=== PATIENT | female | born 1985 | race African-American/Black ===

== ENCOUNTER 2017-01-12 13:50 | Inpatient (IN) ==
[2017-01-12 16:38] LABS: MANUAL DIFF NEEDED? NO
[2017-01-12 16:50] LABS: BASO% 0.1 % (0.0-0.8); EOS% 1.8 % (0.0-10.0); HEMATOCRIT 38.2 % (37.0-47.0); HEMOGLOBIN 12.9 g/dL (12.0-16.0); IMM GRAN# 0.01 X1000 (0.0-0.04); IMM GRAN% 0.1 % (0.0-0.5); LYMPH# 3.31 X1000 (1.2-3.4); LYMPH% 29.6 % (20.5-51.1); MCH 28.9 PG (27-31); MCHC 33.8 g/dL (33-37); MCV 85.7 FL (81-99); MONO# 1.05 X1000 (0.11-0.59); MONO% 9.4 % (1.7-9.3); MPV 12.3 FL (7.4-10.4); PLT 140 X1000 (130-400); RBC 4.46 XMIL (4.2-5.4)
[2017-01-12 17:03] LABS: AGAP 11; ALBUMIN 4.2 g/dL (3.5-5.0); ALKALINE PHOSPHATASE 69 U/L (32-104); BUN 8 mg/dL (8-22); CALCIUM 9.2 mg/dL (8.8-10.2); CHLORIDE 99 mmol/L (98-107); COSMO 264; GOT 12 U/L (10-30); GPT 10 U/L (10-36); POTASSIUM 3.9 mmol/L (3.5-5.1); SODIUM 133 mmol/L (136-145); TCO2 23 mmol/L (25-35); TOTAL PROTEIN 8.4 g/dL (6.3-8.3)
[2017-01-12] MEDS ORDERED: NORCO-5 PO ONE (17:10)
[2017-01-12] MEDS ORDERED: NS 1,000 ML IV ONE (18:03)
[2017-01-12] MEDS ORDERED: NORCO-7.5 PO ONE (18:09)
--- NOTE | 2017-01-12 18:11 | PROVIDER DOCUMENTATION ---
This chart was entered by Gia Alegria Scribe, acting as scribe for Huy Steiner MD. HPI-Rash/Wound/ReCheck - General Chief Complaint: Abdominal Pain Stated Complaint: RETURN/RECHECK Time Seen by Provider: 01/12/17 15:57 Source: patient Allergies/Adverse Reactions: Allergies Allergy/AdvReac Type Severity Reaction Status Date / Time No Known Allergies Allergy Verified 01/11/17 08:48 Home Medications: Home Medication List Medication Instructions Recorded Confirmed Last Taken Type Doxycycline Hyclate 100 mg PO BID #20 capsule 01/11/17 01/12/17 Unknown Rx Hydrocodone/APAP 7.5 mg/325 mg 1 each PO Q8H PRN PRN #10 tablet 01/11/17 Unknown Rx [[place]-7.5] Mupirocin Ointment [Bactroban 1 applicatn TOP TID #1 tube 01/11/17 01/12/17 Unknown Rx Ointment] Sulfamethoxazole/Trimethoprim 1 each PO BID #20 tablet 01/11/17 01/12/17 Unknown Rx [Bactrim Ds Tablet] - History of Present Illness-Dermatology Nature of Presenting Problem: Pt is 31 y/o F presents to the ED with redness to suprapubic region of abdomen. Pt states was seen in ED yesterday for same symptoms. Pt states was given antibiotics and pain meds. Pt states redness area opened this morning with drainage. Pt states F and chills. Location: reports: other (suprapubic area) Quality: reports: burning, painful Severity: reports: moderate Onset/Duration: reports: 1 week ago Timing: reports: still present, getting worse Context/Associated Symptoms: reports: fever, rash (redness to suprapubic area), other (chills) Identifiable cause?: No Exposure: reports: unknown cause Locality of Occurance: Home Similar Symptoms Previously?: Yes Recently seen or treated by another doctor?: Yes Review of Systems - Adult - REVIEW OF SYSTEMS - ADULT Constitutional: reports: chills, fever Eyes: reports: no symptoms reported Ears, Nose, Mouth & Throat: reports: no symptoms reported Cardiovascular: reports: no symptoms reported Respiratory: reports: no symptoms reported Gastrointestinal: reports: no symptoms reported Genitourinary: reports: no symptoms reported Musculoskeletal: reports: no symptoms reported Integumentary: reports: rash (redness to suprapubic area). denies: hives, itching Neurological: reports: no symptoms reported Psychiatric: reports: no symptoms reported Endocrine: reports: no symptoms reported Hematologic/Lymphatic: reports: no symptoms reported Allergic/Immunologic: reports: no symptoms reported All Other Systems: Reviewed and Negative Past History - Adult - PAST MEDICAL HISTORY-ADULT Review of Records: reports: Nursing Assessment Review, Medications Reviewed, Social history reviewed & non-contributory. Major Childhood Illnesses: reports: denies history Cardiovascular: reports: denies history Respiratory: reports: asthma, bronchitis Gastrointestinal: reports: denies history Obstetrical/Gynecological: reports: denies history Genitourinary: reports: denies history Musculoskeletal: reports: denies history Neurological: reports: denies history Endocrine/Immune: reports: denies history Other Conditions: reports: denies history - PRIOR SURGERIES/PROCEDURES Surgical/Procedure History: reports: - IMMUNIZATION STATUS Childhood Immunizations: See Nurse Assessment Flu Vaccine: See Nurse Assessment - FAMILY HISTORY Family History: reviewed, not pertinent - SOCIAL HISTORY Smoking: denies Substance Use: alcohol Alcohol Use Frequency: occasionally Number of drinks per typical drinking period:: 2 drinks Living Situation: family Physical Exam-General - PHYSICAL EXAM-ADULT Initial Vital Signs Reviewed: Yes - CONSTITUTIONAL General Appearance: appears well, alert, mild distress - EYES Eyes: PERRL/EOMI, pink conjunctivae - HEAD, EARS, NOSE, MOUTH & THROAT HENMT: normocephalic/atraumatic, moist mucous membranes, normal ENT inspection - NECK Neck: supple, normal inspection - RESPIRATORY Respiratory: chest non-tender, lungs clear, normal breath sounds - CARDIOVASCULAR Cardiovascular: normal peripheral pulses, regular rate, rhythm, no edema, no gallop, no JVD, no murmur - GASTROINTESTINAL (ABDOMEN) Abdominal Exam: normal bowel sounds, soft, tenderness (suprapubic), other ( redness to suprapubic) - LYMPHATIC Lymphatic: no adenopathy - MUSCULOSKELETAL Back Exam: normal inspection, no CVA tenderness, no vertebral tenderness Extremity: normal range of motion, non-tender, normal gait, normal inspection, no pedal edema, no calf tenderness, normal capillary refill - SKIN Integumentary: normal color, normal turgor, warm/dry, erythema (suprapubic), swelling (suprapubic), tenderness (suprapubic), warm (suprapubic) - NEUROLOGIC Neurologic: grossly normal - PSYCHIATRIC Psych/Mental Status: normal mood/affect, oriented x 3 Progress - PLAN OF CARE/RESULTS Progress/Plan/Lab Results: Vital Signs - 8 hr 01/12/17 13:55 Temperature 97.8 F Pulse Rate 90 Respiratory Rate 18 Blood Pressure 126/68 O2 Sat by Pulse Oximetry 100 Laboratory Results - last 24 hr 01/12/17 01/12/17 01/12/17 16:35 16:35 16:35 WBC 11.17 H RBC 4.46 Hgb 12.9 Hct 38.2 MCV 85.7 MCH 28.9 MCHC 33.8 RDW Std Deviation 12.4 Plt Count 140 MPV 12.3 H Immature Gran % (Auto) 0.1 Neut % (Auto) 59.0 Lymph % (Auto) 29.6 [place] % (Auto) 9.4 H Eos % (Auto) 1.8 Baso % (Auto) 0.1 Immature Gran # (Auto) 0.01 Neut # (Auto) 6.59 H Lymph # (Auto) 3.31 [place] # (Auto) 1.05 H Eos # (Auto) 0.20 Baso # (Auto) 0.01 Sodium 133 L Potassium 3.9 Chloride 99 Carbon Dioxide 23 L Anion Gap 11 BUN 8 Creatinine 1.0 H Estimated GFR/1.73 m2 > 60 BUN/Creatinine Ratio 8 Glucose 89 Calculated Osmolality 264 Calcium 9.2 Total Bilirubin 0.30 AST 12 ALT 10 Alkaline Phosphatase 69 Total Protein 8.4 H Albumin 4.2 Globulin 4.0 Albumin/Globulin Ratio 1.0 Plasma Lactate 0.8 Orders Category Date Time Status Admit - [facility] Routine AdmDCTranf 01/12/17 18:03 Ordered Activity - Up Ad Ghazal ORDERED Care 01/12/17 18:03 Active Call Admitting on Arrival AT ADMISSION Care 01/12/17 18:04 Active Vital Signs Order Q 4-HR ASSESS Care 01/12/17 18:03 Active Heart Healthy Diet Diet 01/12/17 18:05 Active CBC WITH DIFF [HEME] Stat Lab 01/12/17 16:35 Completed COMPREHENSIVE METABOLIC PANEL [CHEM] Stat Lab 01/12/17 16:35 Completed LACTATE, PLASMA [CHEM] Stat Lab 01/12/17 16:35 Completed 0.9% Sodium Chloride Inj [Ns] 1,000 ml Med 01/12/17 18:03 Active IV 150 mls/hr Daptomycin (For Outpatient Use [Cubicin (For Outpatient Med 01/12/17 18:15 Ordered Use)] 500 mg 0.9% Sodium Chloride Inj [Ns] 100 ml IV Q24H Hydrocodone/APAP 5 mg/325 mg [[place]-5] Med 01/12/17 17:10 Discontinued 1 each PO NOW ONE Hydrocodone/APAP 7.5 mg/325 mg [[place]-7.5] Med 01/12/17 18:09 Once 1 each PO NOW ONE Result Diagrams: 01/12/17 16:35 01/12/17 16:35 - CONSULTS/PCP/HOSPITALIST Notification #1 *Consult/PCP/Hospitalist*: Dr. Breen Time Discussed: 17:59 Reason/Comments: Dr. Breen consulted with Dr. Breen about admit of Pt Consult Disposition: Admit Departure - Departure Time of Disposition Decision: 18:10 DIAGNOSIS: Cellulitis of abdominal wall Disposition: ADMITTED INPATIENT 09 Certified Medical Emergency: Emergent Condition: Stable Referrals and Follow-Ups: None,PCP [Primary Care Provider] - - Critical Care Note This patient required my direct & personal management of CC.: No This chart was documented by the indicated scribe, (Gia Alegria Scribe) and accurately reflects the services I performed and decisions made by me, Huy Steiner MD, as attested by the provider's signature.
[2017-01-12] MEDS ORDERED: NS IV SCH (19:00)
[2017-01-12] MEDS ORDERED: CUBICIN IV SCH (19:00)
[2017-01-12] MEDS ORDERED: TYLENOL PO PRN (19:42)
[2017-01-12] MEDS ORDERED: ZOFRAN IV PRN (19:42)
[2017-01-12] MEDS ORDERED: NORCO-7.5 PO PRN (19:42)
[2017-01-12] MEDS: NS 1,000 ML IV SCH (19:50)
[2017-01-12] MEDS: ROCEPHIN 1 GM/NS 1 GM/50 ML IVPB IV SCH (20:25)
[2017-01-12] MEDS: BACTROBAN OINTMENT TOP SCH (20:26)
[2017-01-13] MEDS ORDERED: CUBICIN (FOR INPATIENT USE) 500 MG in NS 100 ML IV SCH (06:02)
[2017-01-13 06:36] LABS: HEMATOCRIT 33.5 % (37.0-47.0); HEMOGLOBIN 11.2 g/dL (12.0-16.0); MCH 28.8 PG (27-31); MCHC 33.4 g/dL (33-37); MCV 86.1 FL (81-99); MPV 12.6 FL (7.4-10.4); RBC 3.89 XMIL (4.2-5.4)
[2017-01-13 06:57] LABS: AGAP 11; ALBUMIN 3.4 g/dL (3.5-5.0); ALKALINE PHOSPHATASE 59 U/L (32-104); BUN 9 mg/dL (8-22); CALCIUM 8.7 mg/dL (8.8-10.2); CHLORIDE 103 mmol/L (98-107); COSMO 271; GOT 10 U/L (10-30); GPT 8 U/L (10-36); POTASSIUM 3.9 mmol/L (3.5-5.1); SODIUM 136 mmol/L (136-145); TCO2 22 mmol/L (25-35); TOTAL BILIRUBIN < 0.15 mg/dL (0.20-1.00); TOTAL PROTEIN 7.1 g/dL (6.3-8.3)
[2017-01-13] MEDS: NS 1,000 ML IV SCH ×2 (07:30→21:18)
[2017-01-13] MEDS: BACTROBAN OINTMENT TOP SCH ×3 (09:25→17:26)
--- NOTE | 2017-01-13 11:46 | PROGRESS NOTE ---
DATE: 01/13/2017 SUBJECTIVE: The patient notes she is feeling a little bit better, still having pain, although pain medications help. Denies any fevers, chills. Denies any cough, congestion. OBJECTIVE: Temperature 98 degrees, pulse 80, respiratory rate 16, blood pressure 109/71, saturation 100% on room air.General: Patient is awake, alert, oriented. She is currently in no respiratory distress. She is pleasant to talk with. Speech is regular. Memory intact. Neck: Supple. Cardiovascular: Regular rate. Chest: Relatively clear. Abdomen: Soft. Extremities: Moves all extremities. Neurologic: No focal neurological changes. Skin: Warm and dry. She is noted to have an erythematous rash on the pannus on her bilateral lower right and left quadrants. No current ulcerative lesions, no pus, and no drainage. LABORATORIES: WBC 7, hemoglobin and hematocrit 11 and 33. Sodium 136. ASSESSMENT: 1. Hyponatremia, resolved. 2. Leukocytosis, resolved. 3. Cellulitis, lower abdominal wall. Expect that this is secondary to Methicillin-resistant Staphylococcus aureus, failed outpatient management. PLAN: We will continue patient on IV Rocephin, IV vancomycin, continue Bactroban, pain control. Further orders as needed. Hopefully, home in 1-2 days. cc: Christiano Breen MD
--- NOTE | 2017-01-13 19:14 | HISTORY AND PHYSICAL ---
CHIEF COMPLAINT: Abdominal wound, abdominal pain. HISTORY OF PRESENT ILLNESS: This is a 32-year-old female who presented to the emergency room actually as a recheck from 24 hours prior for low abdomen cellulitis with a draining wound. The patient states this has been present for a week. She stated it started out as a little pimple that she still feels that she scratched it and shortly after the area started becoming tender to touch and started draining. She states she has a history of these in fact she has an area just to her left lateral breast about dime size as well as 1 to her right upper arm that she states had yellow pimples on them, she scratched, they drained and at present they are crusted over. She has been applying Bactroban daily. She 1st presented to the emergency room on January 11. At that time she was given vancomycin IV and then discharged with a prescription for Bactrim DS, Bactroban ointment and doxycycline. She presented to the ER on January 12 stating that she had increased pain, drainage to this area and she developed fever and chills. Therefore she came in to the ER for reevaluation. She was found to have a white blood cell count of 11.17. She was given IV hydration and admitted for further evaluation and treatment. PAST MEDICAL HISTORY: She denies. PAST SURGICAL HISTORY: in 2010. SOCIAL HISTORY: She denies tobacco or illicit drug use. She does occasionally drink alcohol socially. ALLERGIES: No known drug allergies. HOME MEDICATIONS: None prior to ER visit 24 hours ago. REVIEW OF SYSTEMS: A 14 point review of systems is discussed with the patient with pertinent positives stated in HPI. She denied chest pain, palpitations, dizziness, syncope, nausea, vomiting, diarrhea, constipation, black or bloody vomitus, black or bloody stools, hematuria, dysuria, frequency, urgency. PHYSICAL EXAMINATION: GENERAL: This is a 32-year-old female who is sitting in the bed in no distress. VITAL SIGNS: Blood pressure is 126/68 with a heart rate of 90, respirations are 18, temperature is 97.8 degrees oral with room air saturations of 100%. HEENT: Head is normocephalic, atraumatic. Pupils are equal, round, react to light. EOMs are intact. Sclerae are anicteric. Mucous membranes are moist. NECK: Supple. Trachea midline. CARDIOVASCULAR: Regular rate and rhythm S1, S2 appreciated. PULMONARY: Breath sounds are clear with no increased work of breathing noted. GASTROINTESTINAL: Abdomen is soft. It is tender to palpation with an erythematous rash on the her pannus bilateral right and left lower quadrants. It is draining purulent drainage. EXTREMITIES: No clubbing, cyanosis, or edema. Calves are nontender. Pulses are palpable x4. DIAGNOSTICS: WBC is 11.17 with hemoglobin 12.9, hematocrit 38.2 and platelets of 140,000. Sodium is 133, potassium 3.9, BUN 8, creatinine 1 with a glucose of 89. Microbiology. Blood cultures and wound culture are pending. ASSESSMENT AND PLAN: 1. Hyponatremia. Will continue with IV hydration and recheck labs in the morning. 2. Leukocytosis. We will continue with IV coverage of Rocephin. We will add daptomycin as she did have a documented reaction in the emergency room to vancomycin. 3. Cellulitis lower abdominal wall. This is most likely methicillin-resistant Staphylococcus aureus with failed outpatient treatment. Will continue as stated above. Dictated by EDER Chang for Christiano Breen MD cc: EDER Chang MD [facility]
[2017-01-13] MEDS: ROCEPHIN 1 GM/NS 1 GM/50 ML IVPB IV SCH (21:18)
[2017-01-13] MEDS: CUBICIN (FOR INPATIENT USE) 500 MG in NS 100 ML IV SCH (21:18)
[2017-01-14] MEDS: BACTROBAN OINTMENT TOP SCH ×3 (09:36→17:12)
--- NOTE | 2017-01-14 11:56 | PROGRESS NOTE ---
DATE: 01/14/2017 SUBJECTIVE: The patient notes that she may be feeling a little bit better. She has less pain. Pain medications seem to be helping. Denies any swelling or erythema elsewhere. OBJECTIVE: Vital signs: Temperature 98, pulse 86, respiratory 20, BP 121/77, saturation 99% on room air. General: Patient is awake, alert, oriented. She is in no respiratory distress. Pleasant to talk with. Neck: Supple. CV: Regular rate. Chest: Clear. Abdomen: Soft, nondistended. Extremities: Moves all extremities. Skin: On exam appears to have some pus draining from the open wounds on her pannus. She is noted to have less surrounding erythema, less induration. Appears to be less tender. ASSESSMENT: 1. Leukocytosis, improving. 2. Hyponatremia, improved. 3. Cellulitis lower abdominal wall. PLAN: Continue daptomycin. Continue Rocephin. Further orders as needed. Hopefully home in 1-2 days. cc: Christiano Breen MD
[2017-01-14] MEDS: NS 1,000 ML IV SCH ×2 (13:12→20:37)
[2017-01-14] MEDS: CUBICIN (FOR INPATIENT USE) 500 MG in NS 100 ML IV SCH (20:37)
[2017-01-14] MEDS: ROCEPHIN 1 GM/NS 1 GM/50 ML IVPB IV SCH (20:37)
[2017-01-15] MEDS: NS 1,000 ML IV SCH ×3 (00:59→21:47)
[2017-01-15 06:09] LABS: HEMATOCRIT 34.9 % (37.0-47.0); HEMOGLOBIN 11.9 g/dL (12.0-16.0); MCHC 34.1 g/dL (33-37); MCV 84.9 FL (81-99); MPV 11.7 FL (7.4-10.4); RBC 4.11 XMIL (4.2-5.4)
[2017-01-15 06:19] LABS: AGAP 10; ALBUMIN 3.5 g/dL (3.5-5.0); ALKALINE PHOSPHATASE 54 U/L (32-104); BUN 9 mg/dL (8-22); CHLORIDE 103 mmol/L (98-107); COSMO 272; GOT 11 U/L (10-30); GPT 9 U/L (10-36); MAGNESIUM 1.8 mg/dL (1.5-2.7); POTASSIUM 3.9 mmol/L (3.5-5.1); SODIUM 136 mmol/L (136-145); TCO2 23 mmol/L (25-35); TOTAL BILIRUBIN < 0.15 mg/dL (0.20-1.00)
[2017-01-15] MEDS: BACTROBAN OINTMENT TOP SCH ×3 (09:01→17:18)
[2017-01-15] MEDS: CUBICIN (FOR INPATIENT USE) 500 MG in NS 100 ML IV SCH (21:47)
[2017-01-15] MEDS: ROCEPHIN 1 GM/NS 1 GM/50 ML IVPB IV SCH (21:47)
[2017-01-16] MEDS: NS 1,000 ML IV SCH (05:30)
[2017-01-16 07:28] VITALS: BP 125/79
--- NOTE | 2017-01-16 08:31 | PROGRESS NOTE ---
DATE: 01/15/2017 SUBJECTIVE: Patient notes she is feeling a little bit better. She is having much less drainage and pain in her lower right abdominal wall. However, it still hurts to move. Denies any fevers or chills. OBJECTIVE: Vital Signs: Reviewed. She is afebrile. Blood pressure is stable. Heart rate 80. General: Patient is awake, alert. She is in no distress. She appears much less ill than when she was initially admitted. HEENT: Normocephalic. Neck: Supple. CV: Regular rate. Chest: Clear. Abdomen: Soft, no masses. Extremities: Moves all extremities. Neurologic: No changes. Skin: She has much less drainage, much less induration, no erythema to her right lower quadrant abdominal wall. ASSESSMENT: Abdominal wall cellulitis. Continue vancomycin until culture returns. Hopefully, it will return sensitive to an oral antibiotic and she can be discharged home on oral antibiotics. However we will keep in the hospital until culture results. cc: Christiano Breen MD
[2017-01-16] MEDS: BACTROBAN OINTMENT TOP SCH (10:36)
[2017-01-16] MEDS ORDERED: MOTRIN PO PRN (11:15)
--- NOTE | 2017-01-16 19:05 | DISCHARGE SUMMARY ---
ADMISSION DATE: 01/12/2017 DISCHARGE DATE: 01/16/2017 ADMISSION DIAGNOSES: 1. Hyponatremia. 2. Leukocytosis. 3. Cellulitis of lower abdominal wall. DISCHARGE DIAGNOSES: 1. Hyponatremia resolved. 2. Leukocytosis resolved. 3. Abdominal wall cellulitis with Staphylococcus lugdunensis. SUMMARY OF FINDINGS: This is a 32-year-old female who presented to the emergency room with a recheck of low abdomen cellulitis with a draining wound that had been present for the past week. Stated that it started out as just a simple pimple and she scratched it and shortly after the area became tender to touch and started draining. She had been applying Bactroban daily. Her 1st presentation for this in the emergency room was on January 12. At that time. She was given vancomycin IV and then discharged home with a prescription for Bactrim DS, Bactroban ointment and doxycycline. She presented to the ER on January 12 stating that she had increased pain and drainage to this area and developed a fever and chills. She had a white blood cell count on arrival of 11.17. We obtained a wound culture of the wound on her abdomen that grew out Staphylococcus lugdunensis. She has been receiving here in the hospital daptomycin 500 mg IV q.24 and Rocephin 1 gram IV q.24. Per her sensitivity report it is felt that she can safely be discharged home on Bactrim DS. DISCHARGE INSTRUCTIONS: She will have a prescription for Bactrim DS 1 p.o. q.12 hours #20 with no refills. She will have a prescription for ibuprofen 400 mg p.o. q.6 hours p.r.n., #15 with no refills. She will take Tylenol 650 mg p.o. q.6 hours p.r.n. She will continue her Bactroban ointment topically 3 times a day. FOLLOW UP: We gave her the physician referral line for followup and information on the [facility]. She verbalizes understanding about her discharge instructions. Dictated by EDER Romeo for Arsenio Helm MD cc: EDER Romeo MD
[2017-01-16] MEDS ORDERED: SEPTRA DS PO SCH (21:00)
== END 2017-01-16 13:18 | disposition home or self-care (01) ==
LOC: P.ED 13:50 → SUATTDRO 18:53 → P.MEDSURG 18:53
PROVIDERS: ATTEND Internal Medicine